=== PATIENT | male | born 2000 | race Caucasian/White ===

== ENCOUNTER 2020-09-28 15:10 | Emergency (ER) | payer BC, SELFPAY ==
[2020-09-28 15:17] VITALS: BP 128/71; PULSE 102; RESP 18; TEMP 36.1; O2SAT 94
--- NOTE | 2020-09-28 15:25 | ED.GENADUL_ITS ---
Discharge Plan Disposition Patient Disposition: HOME Condition: Stable Discharge Details Clinical Impression: Pain, dental Primary Care Provider: Unknown,Unknown ED Provider: Kiersten Alfaro Home Meds and New Rx's Prescriptions: New penicillin V potassium 500 mg tablet 500 mg PO QID 7 Days Qty: 28 RF: 0 Discharge Instructions Instructions: Toothache (ED) Additional Instructions: Drink plenty of fluids and get plenty of rest. Alternate tylenol and motrin as needed and directed for pain. Take the antibiotics until finished. Follow-up with your scheduled appointment with your dentist this week. Return immediately to the emergency department if you develop any worsening or new concerning symptoms. Discharge Data Discharge Date/Time-TO BE ENTERED AT DEPARTURE: 09/28/20 16:02 Discharge Physician: Kiersten Alfaro Medical Decision Making 20-year-old male who presents with left lower dental pain for the past 2 days. Patient states he thought his tooth broke and was concerned about a developing infection. No obvious dental fractures or dental abscesses noted. He has some minimal tenderness to palpation of teeth left lower aspect. He appears nontoxic. Will give a prescription for penicillin to take if symptoms worsen before follow-up with dentist in case of developing infection. Advised to follow up with the dentist for re-evaluation. Usual and customary return precautions given prior to discharge. Medical Records Medical records reviewed: Yes I reviewed the patient's medical records. HPI General Mode of arrival: ambulatory . Date/Time Provider Initiated Documentation: 09/28/20 15:11 . Limitations to Documentation: no limitations . Information obtained by: patient . HPI Narrative: Patient is a 20-year-old male who presents with left lower dental pain for the past 2 days. Patient states he thought the tooth was possibly broken and he may be developing an infection. He states he has an appointment with his dentist next week and wanted to make sure if he needs antibiotics first. Denies any fever, chills or neck pain. Related Data Home Medications Medication Instructions Recorded Confirmed penicillin V potassium 500 mg PO QID 7 Days #28 tab 09/28/20 Previous Rx's Medication Instructions Recorded penicillin V potassium 500 mg PO QID 7 Days #28 tab 09/28/20 General Stated Complaint: DentalOral CLAUDIA: 4 Review of Systems All systems reviewed & are unremarkable except as noted in HPI and below Constitutional Constitutional: Reports as per HPI, Denies chills and Denies fever(s) Eyes Eyes: Denies blurry vision ENT Ears, Nose, Mouth, and Throat: Reports dental pain, Denies dizziness, Denies sore throat and Denies throat swelling Cardiovascular Cardiovascular: Denies chest pain and Denies dyspnea Respiratory Respiratory: Denies cough and Denies dyspnea Gastrointestinal Gastrointestinal: Denies abdominal pain, Denies diarrhea and Denies vomiting Genitourinary Genitourinary: Denies hematuria and Denies dysuria Musculoskeletal Musculoskeletal: Denies back pain and Denies numbness Integumentary/Breasts Skin/Breast: Denies lesions and Denies rash Neurologic Neurologic: Denies dizziness, Denies localized weakness and Denies numbness Allergic/Immunologic Allergic/Immunologic: Denies throat swelling [facility] Medical History (Updated 09/29/20 @ 18:58 by Kiersten Alfaro DO) No significant past medical history Surgical History (Updated 09/29/20 @ 18:58 by Kiersten Alfaro DO) No significant past surgical history Social History Smoking/Tobacco Use Status: Current-Occasional Tobacco Type: e-cigarettes Smoking risk assessment performed?: Yes Alcohol Intake: current Alcohol Intake frequency: a few times a month Drug use: Occasionally Substance use type: marijuana Current gender identity: male Do you feel safe at home: Yes Do you feel safe in your relationship?: Yes Exam Const General: cooperative, healthy appearing and no acute distress HENMT Head: normal to inspection Ears: hearing grossly normal bilaterally and external ears normal Mouth: oral mucosae normal Teeth and gingiva: poor dentition Teeth image: 1. Minimal tenderness to palpation to tooth #20/21. No area of edema, erythema, fluctuance or induration noted. Throat: posterior oropharynx normal Eyes General: appearance normal, both eyes and all related structures Neck Neck: normal visual inspection Resp Effort & Inspection: normal respiratory effort and able to speak in complete sentences Cardio Rate: regular rate Skin General skin exam: no rashes or lesions noted Neuro General: patient alert, patient awake and patient oriented x3 Motor: muscle tone normal throughout Extrem General: normal to inspection and full ROM Psych Appearance: grossly normal Affect: normal affect Course Vital Signs Vital signs: Vital Signs Temperature 97.0 F L 09/28/20 15:17 Pulse 102 H 09/28/20 15:17 Respiratory Rate 18 09/28/20 15:17 Blood Pressure 128/71 09/28/20 15:17 Pulse Oximetry 94 09/28/20 15:17 Temperature 97.0 F L 09/28/20 15:17 Temperature Source Skin 09/28/20 15:17 Pulse 102 H 09/28/20 15:17 Respiratory Rate 18 09/28/20 15:17 Respiratory Effort Non-Labored 09/28/20 15:21 Blood Pressure 128/71 09/28/20 15:17 Pulse Oximetry 94 09/28/20 15:17 Oxygen Delivery Method Room Air 09/28/20 15:17 Oxygen Flow Rate 0 09/28/20 15:17 Pain Level 4 09/28/20 15:21
[2020-09-28] MEDS: Penicillin V POTASSIUM 500 MG TAB, 4 TABS/BTL PO (15:58)
== END 2020-09-28 16:02 | disposition home or self-care (01) ==
PROVIDERS: Emergency Provider Physician Assistant
DX: R68.84 Jaw pain (principal)
CPT/HCPCS: 99283